=== PATIENT | female | born 1960 | race Caucasian/White ===

== ENCOUNTER 2016-11-25 08:33 | Outpatient (CLI) | payer OTHER ==
--- NOTE | 2016-11-25 12:27 | RAD ---
CHEST 2 VIEWS: Date: 11/25/16 Comparison is made with the 10/25/16 study. FINDINGS: The lungs are clear today. There is no sign of pneumonia. No effusions are seen. The heart size is n ormal. The trachea is midline. IMPRESSION: No acute thoracic findings. POS: HOME
== END 2016-11-25 08:34 | disposition home or self-care (01) ==
LOC: BURRAD 08:33
PROVIDERS: ATTEND Family Medicine
DX: J15.9 Unspecified bacterial pneumonia (principal)
CPT/HCPCS: 71020